=== PATIENT | male | born 1945 | race Caucasian/White ===

== ENCOUNTER 2023-11-09 03:43 | Inpatient (IN) | payer MEDICARE, OTHER ==
[2023-11-09] VITALS (73 sets, daily range): BP systolic 106–151; BP diastolic 42–71
[~2023-11-09] VITALS: Ht 180.3 cm; Wt 108.0 kg
--- NOTE | 2023-11-09 03:43 | NUR ---
PT WHEELED TO ER BED 10 FOR TRIAGE AT THIS TIME IN SOME DISTRESS. WHEEZING NOTED. SA02 IS 66% ON 2L. EDP AT BEDSIDE. IV INITIATED, LABS DRAWN, EKG COMPLETED, SWABS COLLECTED, AND 50% O2 APPLIED PER EDP ORDERS. PT TOLERATED WELL. CALL LIGHT WITHIN REACH.
[2023-11-09 04:20] LABS: BASO% 0.2 % (0-3); EOS% 1.5 % (0-8); HEMATOCRIT 43.1 % (39.0-50.0); HEMOGLOBIN 13.4 g/dl (14.0-18.0); IMMATURE GRANULOCYTES 0.7 % (0.0-5.0); LYMPH% 13.9 % (15-41); MEAN CORPUSCULAR HGB 31.3 pG CALC (26.0-32.0); MEAN CORPUSCULAR HGB CONC 31.1 g/dL CAL (32.0-36.0); MONO% 6.7 % (2-13); NEUT# 12.35 thou/uL (1.82-7.42); RED BLOOD COUNT 4.28 mill/uL (4.70-6.10); RED CELL DISTRI WIDTH 13.2 % (11.5-15.5)
--- NOTE | 2023-11-09 04:20 | NUR ---
MANAGED CARE COORDINATOR AT BEDSIDE. PATIENT BEING PLACED ON BIPAP.
[2023-11-09 04:22] LABS: MEAN CELL VOLUME 100.7 fL CALC (80.0-100.0)
--- NOTE | 2023-11-09 04:36 | NUR ---
CURRENT MEDICATION SCRIPT HISTORY PRINTED. WRITTER AT BEDSIDE HAS REVIEWED ALL REPORTED MEDICATIONS WITH PATIENT. PATIENT ABLE TO NOD YES OR NO TO VERIFY MEDICATIONS. PATIENT REPORTS ALL MEDICATIONS WERE TAKEN YESTERDAY AND THE NEXT ADMIN DOSE WOULD BE THIS AM.
[2023-11-09 04:37] LABS: ALBUMIN 4.1 g/dL (3.2-5.0); CREATININE 1.5 mg/dL (0.7-1.3); POTASSIUM 4.2 mmol/l (3.5-5.1); TOTAL PROTEIN 6.8 g/dL (6.3-8.2)
[2023-11-09] MEDS ORDERED: TRELEGY ELLIPTA1 AER IN (04:38)
[2023-11-09] MEDS ORDERED: ALBUTEROL108 MCG/AC IN (04:39)
[2023-11-09] MEDS ORDERED: AMLODIPINE BESY10 MG PO (04:40)
[2023-11-09] MEDS ORDERED: PANTOPRAZOLE SO40 M1 PO (04:41)
[2023-11-09] MEDS ORDERED: MONTELUKAST SOD10 MG PO (04:41)
[2023-11-09] MEDS ORDERED: TELMISARTAN80 MG PO ×2 (04:42→08:00)
[2023-11-09] MEDS ORDERED: ROSUVASTATIN CA20 MG PO (04:43)
[2023-11-09] MEDS ORDERED: NITROGLYCERIN0.4 MG SL (04:45)
[2023-11-09] MEDS ORDERED: PREDNISONE10 MG PO (04:46)
--- NOTE | 2023-11-09 04:46 | NUR ---
PATIENT REPORTS PREDNISONE AND ANTIBIOTICS HAVE BEEN COMPLETED, REPORTS CECYLENGloria WAS CHANEGED WITH TRILEPTA. PATIENT UNABLE TO VERIF ALL MEDICATIONS, PHARMACY CONSULT PLACED.
--- NOTE | 2023-11-09 05:00 | NUR ---
ATTAEMPTED ADDITIONAL IV ACCESS WITHOUT SUCCESS.
--- NOTE | 2023-11-09 05:58 | NUR ---
WARM PACK APPLIED TO LFA, PATIENT REQUIRING ADDITIONAL IV ACCESS.
--- NOTE | 2023-11-09 06:04 | NUR ---
MD AT BEDSIDE TO DISCUSS PLAN FOR ADMISSION/RESULTS.
--- NOTE | 2023-11-09 06:19 | NUR ---
ATTEMPTED TO CALL REPORT TO UNIT. PER ICU PATIENT WILL BE TRANSFERRED TO UNIT ON NEXT SHIFT.
--- NOTE | 2023-11-09 07:07 | NUR ---
report rec'd from Sue longo
--- NOTE | 2023-11-09 07:18 | NUR ---
report given to Fanta longo
--- NOTE | 2023-11-09 07:30 | NUR ---
pt transported to icu 1 with monitor and 50% ventimask
[2023-11-09] MEDS ORDERED: TOPROL XL50 MG PO (08:05)
--- NOTE | 2023-11-09 09:15 | NUR ---
Report received from nurse Lopez in ED. Patient arrived to ICU bed 1 at 0730. Respirations labored on exertion. Patient arrived on venti mask but has been switched to high flow nasal cannula @ 10 LPM. Patient alert and oriented and able to make needs known. Denies pain or discomfort. Spouse at bedside. On IV abt and fluids currently. Able to feed self. Oriented to room and call light. Safety measures in place.
--- NOTE | 2023-11-09 10:51 | NUR ---
Patient resting in bed watching tv. Spouse at bedside. Denies pain or discomfort. Respirations even and unlabored on O2 @ 10 LPM via high flow NC. n No concerns voiced at this time.
--- NOTE | 2023-11-09 12:40 | NUR ---
Patient alert and able to make needs known. Using urinal currently with spouse at bedside. Patient has noted decrease in oxygen saturation to mid 80s on exertion but able to recover once back at rest. Continues on O2 @ 10 LPM via high flow nasal cannula. Denies pain or discomfort. Call light within reach.
--- NOTE | 2023-11-09 14:49 | NUR ---
Patient resting in bed with eyes closed. Respirations even and unlabored on room air. No signs of distress noted. Safety measures in place. Spouse at bedside. Call light within reach.
--- NOTE | 2023-11-09 16:24 | NUR ---
Patient awake in bed with spouse at bedside. Patient reminded to use incentive spirometer. Respirations even and unabored on oxygen at 10 LPM via high flow nasal cannula. Denies pain or discomfort. No signs of distress noted.
--- NOTE | 2023-11-09 18:11 | NUR ---
Patient seen by Dr. Lawson (cardiology) via telehealth r/t elevated troponin levels. Repeat EKG and change to cardiac medication recommended. Patient showing no signs of distress at this time. Spouse remains at bedside. No concerns voiced at this time.
--- NOTE | 2023-11-09 18:49 | NUR ---
Bedside report given to oncoming nurse. No concerns voiced at time of report. Patient awake in bed with spouse at bedside.
--- NOTE | 2023-11-09 19:00 | NUR ---
REPORT RECEIVED FROM OFF GOING NURSE.
--- NOTE | 2023-11-09 20:00 | NUR ---
PATIENT NOTED IN BED WITH HOB ELEVATED. NO RESPIRATORY DISTRESS NOTED. VSS. HE IS NOTED ON O2 VIA NC AT 10L. PATIENT TITRATED DOWN TO 7L AT THIS TIME. ASSESSMENT COMPLETED (SEE INTERVENTIONS). PATIENT USED INCENTIVE SPIROMETER WHILE SN AT BEDSIDE. WILL CONTINUE TO MONITOR AND TITRATE OXYGEN TOLERATED BY PATIENT.
--- NOTE | 2023-11-09 21:42 | NUR ---
PATIENT DESATED DOWN INTO THE LOW 80S. OXYGEN INCREASED BACK TO 10L.
--- NOTE | 2023-11-09 22:15 | NUR ---
PATIENT ARRIVED TO UNIT VIA WHEELCHAIR. HE DENIES ANY PAIN OR DISCOMFORT. HEPARIN ORDER NOTED. VSS. HIS LUNGS ARE CLEAR/ DIMINISHED. POOR SKIN TURGOR, BUT INTACT. HE HAS 2 IV SITES #20 IN THE RAC AND LAC. SR ON THE MONITOR. BOWEL SOUNDS ACTIVE IN ALL FOUR QUADS. NO EDEMA NOTED. STRONG PEDAL AND RADIAL PULSES NOTED. HE IS A/O X 3. PATIENT ARRIVED TO UNIT DUE TO ELEVATED TROPONIN. HE DENIES ANY CHEST PAIN. NO CHANGES NOTED VIA THE HOME AND SCHOOL VISITOR. WILL START HEPARIN DRIP PER MD ORDERS AND PROTOCOL. WILL CONTINUE TO MONITOR.
--- NOTE | 2023-11-09 23:00 | NUR ---
PATIENT NOTED SITTING UP IN BED, HE APPEARS TO BE WORKED UP AT THIS TIME. HE IS EXTREMELY ANXIOUS AND STATED THAT HE CANNOT BREATH. HIS SATS NOTED IN THE MID TO LOW 80S AT THIS TIME. PATIENT PLACED BACK ON BIPAP AT THIS TIME.
--- NOTE | 2023-11-09 23:18 | NUR ---
PATIENT ANXIOUS AT THIS TIME, HE IS NOW IN AFIB WITH HR ANYWHERE BETWEEN 130S-150S. MD CONTACTED AND ORDERS RECEIVED FOR 1X DOSE OF LOPRESSOR AND PRN XANAX FOR ANXIETY RECEIVED. ORDERS WRITTEN AND FAXED TO PHARMACY. WILL CONTINUE TO MONITOR.
--- NOTE | 2023-11-09 23:52 | NUR ---
IV LOPRESSOR NOT GIVEN DUE TO PATIENT NOW BACK IN SINUS RHYTHM WITH HR IN THE 90S. HE WAS GIVEN 0.5MG OF XANAX TO HELP CALM HIS ANXIETY.
[2023-11-10] VITALS (89 sets, daily range): BP systolic 89–143; BP diastolic 40–75
--- NOTE | 2023-11-10 04:00 | NUR ---
PATIENT NOTED RESTING COMFORTABLY WITH NO ACUTE DISTRESS NOTED. VSS. HE DENIES ANY PAIN OR DISCOMFORT. WILL CONTINUE TO MONITOR.
[2023-11-10 06:01] LABS: BASO% 0.1 % (0-3); HEMATOCRIT 38.7 % (39.0-50.0); HEMOGLOBIN 12.6 g/dl (14.0-18.0); IMMATURE GRANULOCYTES 0.3 % (0.0-5.0); MEAN CELL VOLUME 100.3 fL CALC (80.0-100.0); MEAN CORPUSCULAR HGB 32.6 pG CALC (26.0-32.0); MEAN CORPUSCULAR HGB CONC 32.6 g/dL CAL (32.0-36.0); MONO% 2.9 % (2-13); NEUT# 13.95 thou/uL (1.82-7.42); NEUT% 94.7 % (42-76); RED BLOOD COUNT 3.86 mill/uL (4.70-6.10); RED CELL DISTRI WIDTH 13.6 % (11.5-15.5)
[2023-11-10 06:23] LABS: ALBUMIN 3.9 g/dL (3.2-5.0); BILIRUBIN, TOTAL 0.7 mg/dL (0.2-1.3); CREATININE 1.9 mg/dL (0.7-1.3); POTASSIUM 4.8 mmol/l (3.5-5.1); TOTAL PROTEIN 6.2 g/dL (6.3-8.2)
[2023-11-10 06:27] LABS: MAGNESIUM 2.5 mg/dL (1.6-2.3)
--- NOTE | 2023-11-10 07:45 | NUR ---
PT ASKING TO EAT , TOOK BIPAP OFF, BUT EXPLAINED THAT WE WOULD PLACE IT BACK ON IF OXYGEN LEVEL DROPPED OFF. PLACED HIM ON N/C TO EAT. PT ALERT/ORIENTED
--- NOTE | 2023-11-10 08:55 | NUR ---
CONSULT PLACED TO DR. ENRIQUEZ PER DR. ESTRADA FOR WORSENING SOB AND ELEVATED TROPONIN
--- NOTE | 2023-11-10 09:29 | NUR ---
S: STEPH DANG is a 78 M who presents with pneumonia and sepsis. He has a history of COPD, HTN, CAD with CABG and hyperlipidemia. All medications in patient's chart were reviewed. O: VS: BP:133/61 mmHg, P:84bpm, RR:25bpm, T:97.9F W: 108kg, HT:71in, Scr=1.9 ml/min,CrCl= 40.1ml/min A: Preliminary blood culture shows no growth after 24 hours. Sputum culture is pending. P: Patient is on cefepime 2gm IV Q12H. Vancomycin ordered for pharmacy to dose. Start Vancomycin 1500mg IV Q24H. Vancomycin trough is drawn before the dose on 11/12/23 at 0930. Vancomycin goal trough is between 15-20 mcg/ml. Pharmacy will follow and or advise on antibiotics use as needed.
--- NOTE | 2023-11-10 09:51 | NUR ---
PT REMAINS ON BIPAP, AT BEDSIDE, JOKING AND LAUGHING WITH STAFF, NO COMPLAINTS. VITAL SIGNS REMAIN STABLE. EKG OBTAINED, AND RT AT BEDSIDE NOW WITH NEB TREATMENT.
[2023-11-10 11:09] LABS: HEMATOCRIT 37.3 % (39.0-50.0); HEMOGLOBIN 11.8 g/dl (14.0-18.0); IMMATURE GRANULOCYTES 0.3 % (0.0-5.0); LYMPH% 2.1 % (15-41); MEAN CORPUSCULAR HGB 31.6 pG CALC (26.0-32.0); MEAN CORPUSCULAR HGB CONC 31.6 g/dL CAL (32.0-36.0); MONO% 4.1 % (2-13); NEUT# 13.54 thou/uL (1.82-7.42); NEUT% 93.5 % (42-76); RED BLOOD COUNT 3.73 mill/uL (4.70-6.10); RED CELL DISTRI WIDTH 13.8 % (11.5-15.5)
--- NOTE | 2023-11-10 12:19 | NUR ---
PT RESTING ON BED WITH FAMILY AT BEDSIDE, HEPARIN GTT BEGUN PER PROTOCOL, VITAL SIGNS STABLE. DENIES ANY CHEST PAIN, TRIED TO WEAN PT FROM BIPAP, BUT PT BECOMES ANXIOUS SOON BIPAP REMOVED ALTHOUGH SATS ONLY DECREASE FROM 92 TO 90 WITH REMOVAL AND SWITCHING OVER TO HIGH FLOW 02
--- NOTE | 2023-11-10 13:46 | NUR ---
AFTER SPEAKING WITH [employer] MEMBER DR. ENRIQUEZ, WAS DECIDED TO TRY AND WEAN PT OFF OF BIPAP. PLACED PT BACK ON HIGH FLOW AT 10 , PT VERY ANXIOUS EVEN BEFORE TAKING MASK OFF THAT HE WOULDNT BE ABLE TO BREATHE WITHOUT IT
--- NOTE | 2023-11-10 14:27 | NUR ---
PT STARTED ECHO ULTRASOUND BUT PT STATES WAS NOT ABLE TO STAND HAVING IT DONE AND REFUSING ECHO AT THIS TIME. PT PLACED BACK ON BIPAP.
--- NOTE | 2023-11-10 17:07 | NUR ---
pt remains alert/oriented, try taking bipap off and replace with n/c, but pt starts demanding to have it back on, saying he cant breathe without it. becomes very anxious, other than that pt has stayed calm, continues to deny and chest pain, states feels like his airway is opening a little more. remains at bed side. have spoken to pt about trying to get pt transfer as soon as a bed is available and will continue to update pt/family.
--- NOTE | 2023-11-10 20:00 | NUR ---
PATIENT NOTED IN BED WITH HOB ELEVATED. NO ACUTE DISTRESS NOTED AT THIS TIME. HE DENIES ANY PAIN OR DISCOMFORT AT THIS TIME. HE IS A/O X3. VSS AT THIS TIME. TRANSFER CENTER CALLED AND STATED THAT THERE WILL NOT BE A STEP DOWN BED AVAILABLE FOR A COUPLE OF DAYS. MD CONTACTED AND NOTIFIED, MD STATED PATIENT WILL REMAIN HERE FOR NOW. HIS LUNGS ARE NOTED COARSE THROUGHOUT. +2 PITTING EDEMA NOTED TO BLE. HE IS ON BIPAP AT THIS TIME, AND BECOMES SOB WITH MIN EXERTION. PATIENT HYPERVENTILATES WHEN BIPAP IS REMOVED FOR SMALL TASKS SUCH TAKING HIS MEDICATIONS. HIS SKIN IS INTACT. BOWEL SOUNDS ACTIVE IN ALL FOUR QUADS. WILL CONTINUE TO MONITOR.
--- NOTE | 2023-11-10 22:00 | NUR ---
NO CHANGES NOTED.
[2023-11-11] VITALS (43 sets, daily range): BP systolic 62–251; BP diastolic 22–164
--- NOTE | 2023-11-11 | NUR ---
PATIENT SITTING UP IN BED WITH NO ACUTE DISTRESS NOTED. VSS. PATIENT STILL ON BIPAP AT THIS TIME. NON LABORED BREATHING NOTED. PATIENT SATS REMAINS IN THE HIGH 80S TO LOW 90S.
--- NOTE | 2023-11-11 04:00 | NUR ---
PATIENT SITTING UP IN BED WITH NO ACUTE DISTRESS NOTED AT THIS TIME.
--- NOTE | 2023-11-11 05:00 | NUR ---
SECOND THERAPUTIC PTT NOTED.
[2023-11-11 05:20] LABS: HEMATOCRIT 34.7 % (39.0-50.0); HEMOGLOBIN 10.8 g/dl (14.0-18.0); IMMATURE GRANULOCYTES 0.3 % (0.0-5.0); MEAN CELL VOLUME 102.1 fL CALC (80.0-100.0); MEAN CORPUSCULAR HGB 31.8 pG CALC (26.0-32.0); MEAN CORPUSCULAR HGB CONC 31.1 g/dL CAL (32.0-36.0); MONO% 4.8 % (2-13); NEUT# 15.07 thou/uL (1.82-7.42); NEUT% 92.9 % (42-76); RED BLOOD COUNT 3.4 mill/uL (4.70-6.10)
[2023-11-11 05:35] LABS: ALBUMIN 3.6 g/dL (3.2-5.0); BILIRUBIN, TOTAL 0.7 mg/dL (0.2-1.3); CREATININE 2.7 mg/dL (0.7-1.3); MAGNESIUM 2.6 mg/dL (1.6-2.3); POTASSIUM 5.5 mmol/l (3.5-5.1); TOTAL PROTEIN 6.2 g/dL (6.3-8.2)
--- NOTE | 2023-11-11 07:22 | NUR ---
PT REPORT RECEIVED, PT REMAINS ON BIPAP, STILL DENIES CHEST COMPLAINT/PAIN, REMAINS ALERT/ORIENTED X3, AT BEDSIDE
--- NOTE | 2023-11-11 08:30 | NUR ---
ADVISED PT OF PLAN OF CARE, WE ARE TRYING TO TRANSFER PT AND HAVE NOT FOUND AN ACCEPTING HOSPITAL AT THIS TIME. ADVISED THAT DR. ESTRADA WILL TRY PLACING A CENTRAL LINE SOON HE IS ABLE. SPOKE TO PT ABOUT POSSIBLY NEED OF PLACING PT ON VENTILATOR DUE TO UNABLE TO TOLERATE HIGH FLOW N/C, AND ABG RESULTS. PT VOICES UNDERSTANDING AND AGREED TO BE PLACED ON VENT IF NEED AROSE. PT REMAINS ALERT/ORIENTED, SPEAKING WITH STAFF. AT BEDSIDE.
--- NOTE | 2023-11-11 14:10 | NUR ---
DURING TIME TRYING TO GET ECHOCARDIOGRAM PT BECAME LETHARGIC, OXYGEN LEVEL DROPPED TO APPROX 52 WITH BIPAP, ADJUSTED MASK AND PLACED PT IN A SEMI BHATIA POSITION, PT BEGAN TO RESPOND BETTER AND SATS CAME BACK UP TO80'S, CENTRAL LINE PLACEMENT TO RIGHT GROIN AREA OBTAINED PER DR. ESTRADA.. CONTINUING TO TRY AND FIND HIGHER LEVEL OF CARE FOR PT.
--- NOTE | 2023-11-11 14:34 | NUR ---
S: STEPH DANG is a 78 M who presents with sepsis and pneumonia. He has a history of COPD, HTN, CAD with CABG and hyperlipidemia. All medications in patient's chart were reviewed. O: VS: BP:120/59 mmHg, P:86bpm, RR:22bpm, T:97.9F W: 108kg, HT:71in, Scr=2.7, CrCl= 28.2ml/min Vancomycin trough (early) result from 11/11/22: 11 ug/ml Trough was drawn before the 2nd dose due to a decrease in patient kidney function. A: Preliminary blood culture shows no growth after 48 hours. Final sputum culture shows normal respiratory armen. Vancomycin trough level 11 prior to 2nd dose; increase in trough level expected. Frequency decreased to q36h to adjust for decline in kidney function. P: Patient is on cefepime 1gm IV Q12H, azithromycin 500mg IV Q24H and vancomycin 1500mg IV Q24H. Vancomycin ordered for pharmacy to dose. Change Vancomycin frequency to 1500mg IV Q36H. Vancomycin trough is drawn before the 3rd dose on 11/13/23 at 0930. Vancomycin goal trough is between 15-20 mcg/ml. Pharmacy will follow and or advise on antibiotics use as needed.
--- NOTE | 2023-11-11 15:30 | NUR ---
PTS HEART RATE BEGAN TO DROP TO IN THE 30'S TO 40'S, BLOOD PRESSURE DROPPED, DR. ESTRADA NOTIFIED AND PLANS FOR INTUBATION BEGAN, ANESTHESOLOGIST NOTIFIED AND CAME TO BEDSIDE, WITH DR. ESTRADA AND RESPIRATORY. PT INTUBATED WITH A 8, BLOOD PRESSURE REMAINED LOW AND HEART RATE REMAINED LOW IN THE 40'S. NS INFUSING AND LEVOPHED DRIP BEGAN AT 8 MEQ. 1549 10 OF VECCORONIUM GIVEM PER DR. ESTRADA. 1550 LEVO UP TO 16 MEQ FOR CONTINUED LOW BLOOD PRESSURE OF 69/29 1554 EPI 20 MG GIVEN FOR BLOOD PRESSURE OF 77/29 HEART RATE 43
[2023-11-11 15:40] LABS: HEMATOCRIT 32.9 % (39.0-50.0); HEMOGLOBIN 9.9 g/dl (14.0-18.0); MEAN CELL VOLUME 105.1 fL CALC (80.0-100.0); MEAN CORPUSCULAR HGB 31.6 pG CALC (26.0-32.0); MEAN CORPUSCULAR HGB CONC 30.1 g/dL CAL (32.0-36.0); RED BLOOD COUNT 3.13 mill/uL (4.70-6.10); RED CELL DISTRI WIDTH 14.4 % (11.5-15.5)
--- NOTE | 2023-11-11 15:56 | NUR ---
10 MG EPI PUSH GIVEN PER DR. ESTRADA, LEVO UPPED TO 24 FOR BLOOD PRESSURE OF 77/59 AND HEART RATE OF 54. 1640 EPI DRIP HUNG AT 1 MCG/MIN 4 ML/HR. BLOOD PRESSURE 107/41.
[2023-11-11 16:14] LABS: ALBUMIN 3.3 g/dL (3.2-5.0); BILIRUBIN, TOTAL 0.6 mg/dL (0.2-1.3); CREATININE 3.3 mg/dL (0.7-1.3); MAGNESIUM 2.7 mg/dL (1.6-2.3); TOTAL PROTEIN 5.3 g/dL (6.3-8.2)
[2023-11-11 16:36] LABS: POTASSIUM 6.3 mmol/l (3.5-5.1)
--- NOTE | 2023-11-11 16:46 | NUR ---
yvonne lala called for pt whos sats dropped , no pulse found , dr. pride at bedside. refer to yvonne lala sheet
--- NOTE | 2023-11-11 17:12 | NUR ---
time of 1711, code stopped, was at bedside and spoken to by dr. pride. form filled out and [facility] notified and not medically suitable. maryana sabina called per family request and will come to pickling drum operator pt in about an hour and 30 min. after removal of all iv,s, central line, and et tube, noticed pt had 2 rachael rings on his fingers. had already left. called to advise
== END 2023-11-11 19:19 | disposition expired | DRG 208 ==
LOC: ED 03:43 → ED-I 04:17 → ED 06:11 → ICU 06:12
PROVIDERS: Family Medicine; Student in an Organized Health Care Education/Training Program; ADMIT Internal Medicine; ATTEND Internal Medicine
PROC: 5A09457 Assistance with Respiratory Ventilation, 24-96 Consecutive Hours, Continuous Positive Airway Pressure (ICD-10-PCS; principal; 2023-11-09)
PROC: 3E02340 Introduction of Influenza Vaccine into Muscle, Percutaneous Approach (ICD-10-PCS; 2023-11-10)
PROC: 5A1935Z Respiratory Ventilation, Less than 24 Consecutive Hours (ICD-10-PCS; 2023-11-11)
PROC: 0BH17EZ Insertion of Endotracheal Airway into Trachea, Via Natural or Artificial Opening (ICD-10-PCS; 2023-11-11)
PROC: 5A12012 Performance of Cardiac Output, Single, Manual (ICD-10-PCS; 2023-11-11)
PROC: XW033E5 Introduction of Remdesivir Anti-infective into Peripheral Vein, Percutaneous Approach, New Technology Group 5 (ICD-10-PCS; 2023-11-11)
DX: U07.1 COVID-19 (principal); J96.21 Acute and chronic respiratory failure with hypoxia; I21.4 Non-ST elevation (NSTEMI) myocardial infarction; J96.22 Acute and chronic respiratory failure with hypercapnia; J12.82 Pneumonia due to coronavirus disease 2019; J44.1 Chronic obstructive pulmonary disease with (acute) exacerbation; E87.4 Mixed disorder of acid-base balance; N17.9 Acute kidney failure, unspecified; I13.0 Hypertensive heart and chronic kidney disease with heart failure and stage 1 through stage 4 chronic kidney disease, or unspecified chronic kidney disease; J44.0 Chronic obstructive pulmonary disease with (acute) lower respiratory infection; I25.10 Atherosclerotic heart disease of native coronary artery without angina pectoris; E78.5 Hyperlipidemia, unspecified; I50.9 Heart failure, unspecified; N18.31 Chronic kidney disease, stage 3a; E86.9 Volume depletion, unspecified; I95.9 Hypotension, unspecified; T50.2X5A Adverse effect of carbonic-anhydrase inhibitors, benzothiadiazides and other diuretics, initial encounter; T46.5X5A Adverse effect of other antihypertensive drugs, initial encounter; E87.5 Hyperkalemia; D64.9 Anemia, unspecified; Z23 Encounter for immunization; Z99.81 Dependence on supplemental oxygen; Z87.891 Personal history of nicotine dependence; Z95.1 Presence of aortocoronary bypass graft; Z95.5 Presence of coronary angioplasty implant and graft
CPT/HCPCS: J0692; J1644; J1650; J2060; J3370; J3475